=== PATIENT | male | born 1935 | race Caucasian/White ===

== ENCOUNTER → 2019-03-03 | Outpatient (CLI) | payer MEDICARE ==
[2019-03-05 10:07] LABS: COTININE Negative ng/mL (Cutoff=300)
== END | disposition home or self-care (01) ==
LOC: LAB 13:24 → LAB SHORT 13:24 → EDSTATUS 15:05
PROVIDERS: Orthopaedic Surgery
DX: F17.200 Nicotine dependence, unspecified, uncomplicated (principal)

== ENCOUNTER 2019-03-27 12:00 | Day surgery (SDC) | payer MEDICARE ==
[~2019-03-27] VITALS: Ht 172.7 cm; Wt 105.0 kg
[~2019-03-27 12:00] MED LIST: LEVSOD100 PO
--- NOTE | 2019-03-27 12:23 | NUR ---
PT ADMITTED TO [facility]. AGREES WITH PLANNED SURGERY.
--- NOTE | 2019-03-27 12:40 | NUR ---
LUNG SOUNDS CLEAR.
--- NOTE | 2019-03-27 12:53 | NUR ---
NOZIN TO NARES BILATERALLY.
--- NOTE | 2019-03-27 14:04 | NUR ---
REPORT TO HARPER GAYTAN RN.
--- NOTE | 2019-03-27 14:11 | NUR ---
ASSUMED CARE FROM DELROY LARSEN. PT ALERT AND ORIENTED.
--- NOTE | 2019-03-27 23:47 | NUR ---
2315: RECEIVED REPORT FROM PREVIOUS RN AND ASSUMED CARE OF PT. BED IN LOW POSITION, ALARMED, AND CALL LIGHT IN REACH.
[2019-03-28 04:00] LABS: BASOPHILS ABSOLUTE AUTO 0.02 K/mm3 (0.00-0.23); BASOPHILS PERCENT AUTO 0 % (0-2); EOSINOPHILS PERCENT AUTO 0 % (0-6); Hematocrit 42.1 % (37.0-53.0); IMMATURE GRAN ABSOLUTE AUTO 0.04 K/mm3 (0.00-0.10); IMMATURE GRAN PERCENT AUTO 0 % (0-1); LYMPHOCYTES ABSOLUTE AUTO 1.08 K/mm3 (0.84-5.20); LYMPHOCYTES PERCENT AUTO 8 % (21-46); MONOCYTES ABSOLUTE AUTO 0.32 K/mm3 (0.16-1.47); MONOCYTES PERCENT AUTO 3 % (4-13); Mean Corpuscular HGB 29.8 pg (26.0-34.0); Mean Corpuscular HGB Conc 33.3 g/dL (31.5-36.5); Mean Corpuscular Volume 90 fL (80-100); Mean Platelet Volume 9.7 fL (9.1-12.4); NEUTROPHILS ABSOLUTE AUTO 11.41 K/mm3 (1.96-9.15); NEUTROPHILS PERCENT AUTO 89 % (41-73); Platelet Count 218 K/mm3 (150-400); RDW Coefficient Variation 13.7 % (11.7-14.2); RDW Standard Deviation 45.4 fL (35.1-46.3); White Blood Cell Count 12.87 K/mm3 (4.00-11.30)
[2019-03-28 04:16] LABS: Bun/Creatinine Ratio 14.2 (12.0-20.0); Calcium, Blood 8.2 mg/dL (8.5-10.1); Creatinine, Blood 1.34 mg/dL (0.60-1.20); Potassium, Blood 4.7 mmol/L (3.5-5.5)
--- NOTE | 2019-03-28 06:20 | NUR ---
SUMMARY: POD [address] CASTRO. VSS, AFEBRILE, ROOM AIR. PT PAIN WELL CONTROLLED WITH SCHEDULED MEDS AND 5MG ROXICODONE X2 THIS SHIFT. TOLERATING PO INTAKE WELL, VOIDING CLEAR YELLOW, UP WITH 1 SBA AND FWW FOR BRP. ANTICIPATE PT/OT LATER THIS DAY AND PROBABLE DC HOME.
[2019-03-28] MEDS ORDERED: Percocet 5-3251 EACH PO (10:58)
[2019-03-28] MEDS ORDERED: LO-DOSE ASPIRIN81 MG PO (10:59)
--- NOTE | 2019-03-28 11:23 | NUR ---
03/28/19 1123 Salome Pierre VERIFICATIONS, EDITS.
--- NOTE | 2019-03-28 12:53 | NUR ---
DISCHARGE PT DISCHARGED AT APPROXIMATELY 1110. PT WAS PROVIDED WITH WRITTEN AND VERBAL DISCHARGE INSTRUCTIONS FROM CARMINE LARSEN. REPLACEMENT DRESSINGS PROVIDED FOR PATIENT. PT ASSISTED OUT IN W/C BY ANGELA JANSEN.
== END 2019-03-28 11:15 | disposition home or self-care (01) ==
LOC: ORSCMMR 12:00 → ORD 12:15 → ORSCMMR 13:15 → SURS 17:29 → ORSCMMR 17:29 → SURS 03-28 11:15
PROVIDERS: Orthopaedic Surgery
PROC: 0SRC0JA Replacement of Right Knee Joint with Synthetic Substitute, Uncemented, Open Approach (ICD-10-PCS; principal; 2019-03-27 13:15)
DX: E03.9 Hypothyroidism, unspecified (principal); Z79.899 Other long term (current) drug therapy; E66.9 Obesity, unspecified; Z68.35 Body mass index [BMI] 35.0-35.9, adult
CPT/HCPCS: 36415; 73560-RT; 80048; 85025; 86850; 86900; 86901; 88300; 97110; 97116; 97162; 97530; C1776; J0171; J0690; J0735; J1170; J1885; J2370; J2795; J3010; J7120

== ENCOUNTER 2019-08-28 06:10 | Day surgery (SDC) | payer MEDICARE ==
[~2019-08-28] VITALS: Ht 172.7 cm; Wt 102.4 kg
[~2019-08-28 06:10] MED LIST changes: +LO-DOSE ASPIRIN81 MG PO; +Percocet 5-3251 EACH PO
--- NOTE | 2019-08-28 06:32 | NUR ---
PT ADMITTED TO [facility]. AGREES WITH PLANNED SURGERY. LUNG SOUNDS CLEAR.
--- NOTE | 2019-08-28 06:46 | NUR ---
NOZIN TO NARES BILATERALLY ORDERED.
--- NOTE | 2019-08-28 07:15 | NUR ---
UP TO BATHROOM TO VOID.
--- NOTE | 2019-08-28 10:45 | NUR ---
CREATININE CLEARANCE CONTACTED KEIKO FROM PHARMACY TO VERIFY IF TORADOL WILL BE SAFE TO ADMINISTER. BASED OFF OF MOST RECENT LAB VALUE FROM 08/13 CREATININE IS 1.29. CREATININE CLEARANCE WAS CALCULATED BY PHARMACIST KEIKO AND IS 42. PER KEIKO PT IS SAFE TO HAVE TORADOL.
--- NOTE | 2019-08-28 10:48 | NUR ---
PT ARRIVED TO THE UNIT AT APPROXIMATELY 1020. PT ALERT AND ORIENTED, HE DENIES PAIN. TOLERATING PO. VSS. FAMILY AT BEDSIDE FOR SUPPORT. WILL CONTINUE TO MONITOR.
--- NOTE | 2019-08-28 17:58 | NUR ---
SHIFT SUMMARY PAIN HAS BEEN MANAGED WITH PO AND IV PAIN MEDICATION. PT IS TOLERATING PO WELL. HE HAS WORKED WITH THERAPY AND IS A 1 PERSON ASSIST WHEN OOB. WILL MONITOR UNTIL REPORT TO ONCOMING RN.
--- NOTE | 2019-08-29 05:07 | NUR ---
SHIFT SUMMARY PT A/O X4. USES URINAL. HAS SLEPT MOST OF THE NIGHT. REPORTS TOLERABLE PAIN LEVEL WITH PAIN MEDS PER ORDERS. DENTURES CLEANED BY RN. POLAR PACK IN PLACE, ICE CHANGED MULT TIMES THROUGHOUT SHIFT. CARLYLE MERAZ. REPORTS NO CONCERNS/WANTS/NEEDS AT THIS TIME. ASSISTED WITH ADL'S PRN.
[2019-08-29 05:29] LABS: BASOPHILS ABSOLUTE AUTO 0.02 K/mm3 (0.00-0.23); BASOPHILS PERCENT AUTO 0 % (0-2); EOSINOPHILS ABSOLUTE AUTO 0.03 K/mm3 (0.00-0.68); EOSINOPHILS PERCENT AUTO 0 % (0-6); Hematocrit 41.2 % (37.0-53.0); Hemoglobin 13.7 g/dL (13.5-17.5); IMMATURE GRAN ABSOLUTE AUTO 0.07 K/mm3 (0.00-0.10); IMMATURE GRAN PERCENT AUTO 1 % (0-1); LYMPHOCYTES ABSOLUTE AUTO 1.43 K/mm3 (0.84-5.20); LYMPHOCYTES PERCENT AUTO 10 % (21-46); MONOCYTES ABSOLUTE AUTO 1.11 K/mm3 (0.16-1.47); MONOCYTES PERCENT AUTO 8 % (4-13); Mean Corpuscular HGB 29.7 pg (26.0-34.0); Mean Corpuscular HGB Conc 33.3 g/dL (31.5-36.5); Mean Corpuscular Volume 89 fL (80-100); NEUTROPHILS ABSOLUTE AUTO 11.86 K/mm3 (1.96-9.15); NEUTROPHILS PERCENT AUTO 82 % (41-73); Platelet Count 208 K/mm3 (150-400); RDW Coefficient Variation 14.1 % (11.7-14.2); RDW Standard Deviation 45.6 fL (35.1-46.3); Red Blood Cell Count 4.62 M/mm3 (4.30-5.90); White Blood Cell Count 14.52 K/mm3 (4.00-11.30)
[2019-08-29 05:55] LABS: Bun/Creatinine Ratio 14.7 (12.0-20.0); Calcium, Blood 8.5 mg/dL (8.5-10.1); Creatinine, Blood 1.56 mg/dL (0.60-1.20); Potassium, Blood 4.5 mmol/L (3.5-5.5)
[2019-08-29] MEDS ORDERED: CELE100 PO (08:35)
[2019-08-29] MEDS ORDERED: ASPI81CH PO (08:41)
[2019-08-29] MEDS ORDERED: Percocet 7.5-31 EACH PO (08:41)
--- NOTE | 2019-08-29 11:26 | NUR ---
PATIENT D/C'D HOME WITH SPOUSE AT THIS TIME. PATIENT HAD R TKA IN MARCH; STATES UNDERSTANDING OF MEDS, ACTIVITY, WOUND CARE, OP PT, F/U APPT, ETC. PATIENT STATES PAIN CONTROLLED WITH PO PAIN MED. TOLERATING PO. VOIDING. NO ACUTE CHANGES OR C/O AT THIS TIME.
== END 2019-08-29 11:27 | disposition home or self-care (01) ==
LOC: ORSCMMR 06:10 → ORD 07:30 → ORSCMMR 07:30 → SURS 10:22 → ORSCMMR 08-29 11:27
PROVIDERS: Orthopaedic Surgery
PROC: 0SRD0JA Replacement of Left Knee Joint with Synthetic Substitute, Uncemented, Open Approach (ICD-10-PCS; principal; 2019-08-28 07:30)
DX: M17.12 Unilateral primary osteoarthritis, left knee (principal); N18.9 Chronic kidney disease, unspecified; E03.9 Hypothyroidism, unspecified; E66.9 Obesity, unspecified; Z68.34 Body mass index [BMI] 34.0-34.9, adult; Z79.899 Other long term (current) drug therapy
CPT/HCPCS: 36415; 73560-LT; 80048; 85025; 86850; 86900; 86901; 88300; 97110; 97116; 97161; 97530; C1776; J0171; J0690; J0735; J1100; J1170; J1885; J2250; J2405; J2704; J2795; J3010; J7120

== ENCOUNTER 2023-01-31 14:21 | Emergency (ER) | payer MEDICARE ==
[~2023-01-31] VITALS: Ht 172.7 cm; Wt 98.0 kg
[~2023-01-31 14:21] MED LIST changes: +ASPI81CH PO; +CELE100 PO; +Percocet 7.5-31 EACH PO
[2023-01-31 16:55] VITALS: BP 107/83
== END 2023-01-31 16:58 | disposition home or self-care (01) ==
LOC: ER 14:21
DX: S00.01XA Abrasion of scalp, initial encounter (principal); E03.9 Hypothyroidism, unspecified; M10.9 Gout, unspecified; Z23 Encounter for immunization; Z79.899 Other long term (current) drug therapy; Z79.82 Long term (current) use of aspirin; W18.30XA Fall on same level, unspecified, initial encounter
CPT/HCPCS: 70450; 90471; 90714; 99284-25; A9270

== ENCOUNTER 2023-10-23 15:37 | Emergency (ER) | payer MEDICARE ==
[~2023-10-23] VITALS: Ht 172.7 cm; Wt 95.2 kg
[2023-10-23 15:48] VITALS: BP 129/99
[2023-10-23 16:10] LABS: BASOPHILS ABSOLUTE AUTO 0.04 K/mm3 (0.00-0.23); BASOPHILS PERCENT AUTO 0 % (0-2); EOSINOPHILS ABSOLUTE AUTO 0.14 K/mm3 (0.00-0.68); EOSINOPHILS PERCENT AUTO 1 % (0-6); Hematocrit 47.5 % (37.0-53.0); IMMATURE GRAN ABSOLUTE AUTO 0.03 K/mm3 (0.00-0.10); IMMATURE GRAN PERCENT AUTO 0 % (0-1); LYMPHOCYTES ABSOLUTE AUTO 2.23 K/mm3 (0.84-5.20); LYMPHOCYTES PERCENT AUTO 22 % (21-46); MONOCYTES ABSOLUTE AUTO 0.78 K/mm3 (0.16-1.47); MONOCYTES PERCENT AUTO 8 % (4-13); Mean Corpuscular HGB 28.9 pg (26.0-34.0); Mean Corpuscular HGB Conc 33.7 g/dL (31.5-36.5); Mean Corpuscular Volume 86 fL (80-100); Mean Platelet Volume 9.9 fL (9.1-12.4); NEUTROPHILS ABSOLUTE AUTO 6.89 K/mm3 (1.96-9.15); NEUTROPHILS PERCENT AUTO 68 % (41-73); Platelet Count 239 K/mm3 (150-400); RDW Standard Deviation 43.6 fL (35.1-46.3); Red Blood Cell Count 5.54 M/mm3 (4.30-5.90); White Blood Cell Count 10.11 K/mm3 (4.00-11.30)
[2023-10-23 16:29] LABS: Albumin, Blood 3.9 g/dL (3.4-5.0); Albumin/Globulin Ratio 1.1 (0.8-1.8); Bilirubin, Total 0.5 mg/dL (0.1-1.0); Bun/Creatinine Ratio 12.5 (12.0-20.0); Calcium, Blood 9.5 mg/dL (8.5-10.1); Creatinine, Blood 1.68 mg/dL (0.60-1.20); Globulin, Blood 3.7 g/dL (2.2-4.0); Potassium, Blood 4.3 mmol/L (3.5-5.5); Total Protein, Blood 7.6 g/dL (6.4-8.2)
[2023-10-23 16:42] LABS: Influenza A, PCR NEGATIVE (NEGATIVE); Influenza B, PCR NEGATIVE (NEGATIVE); Resp Syncytial Virus, PCR NEGATIVE (NEGATIVE); SARS-Cov-2 (COVID-19) PCR, MMC NEGATIVE (NEGATIVE)
[2023-10-23] MEDS ORDERED: DICY20 PO (17:22)
[2023-10-23] MEDS ORDERED: PROM25 PO (17:22)
== END 2023-10-23 17:31 | disposition home or self-care (01) ==
LOC: ER 15:37
PROVIDERS: Physician Assistant
DX: K52.9 Noninfective gastroenteritis and colitis, unspecified (principal); Z20.822 Contact with and (suspected) exposure to COVID-19; Z87.891 Personal history of nicotine dependence; Z79.82 Long term (current) use of aspirin; Z79.899 Other long term (current) drug therapy
CPT/HCPCS: 0241U; 74177; 80053; 83690; 85025; 99284-25; Q9967